=== PATIENT | female | born 1990 | race Caucasian/White ===

== ENCOUNTER 2017-06-20 09:32 | Outpatient (CLI) | payer OTHER ==
--- NOTE | 2017-06-20 10:20 | RADRPT ---
PROCEDURE: US biophysical profile. CLINICAL INDICATION: Decreased motion. TECHNIQUE: Multiple sonographic images of the uterus were obtained. The images were revi ewed on a PACS workstation. COMPARISON: No prior studies are available for comparison. FINDINGS: There is a single live intrauterine gestation. heart rate is 152 beats per minute. The position is cephalic. The placenta is anterior with no abruption or previa. The BRANDON is 13.3 cm. (Normal = 5-20 cm.) Breathing Movement: 2 Gross Body Movement: 2 Tone: 2 Qualitative Amniotic Fluid Volume: 2 TOTAL: 8 IMPRESSION: 1. The biophysical score is 8/8. RPTAT: QQ .Mumtaz Ordoñez MD, MD Date Time Electronically viewed and signed by .Mumtaz Ordoñez MD, on 06/20/2017 10:20 .R/
--- NOTE | 2017-06-20 11:30 | TRIAGE ---
OB Triage Datetime Report Generated by CPN: 06/20/2017 11:30 Datetime: 06/20/2017 11:01 Stage of : OB Triage Maternal Assessment Level of Consciousness: Fully Conscious DTR's/Clonus: DTRs 1+ Headache: Denies Breath Sounds, Left: Clear and Equal Breath Sounds, Right: Clear and Equal Nausea/Vomiting: Denies RUQ Epigastric Pain: Denies Labor Evaluation Frequency: NONE Monitor Mode: External Resting Tone [place]: Relaxed Heart Rate FHR Baseline Rate: 150 Monitor Mode: External US Variability: Moderate 6-25 bpm Accelerations: 15X15 Decelerations: None Category: Category I Pain Assessment Pain Scale: 3 Pain Presence: Intermittent Pain Type: Cramping Pain Goal: 3 Vaginal Exam Membrane Status: Intact Datetime: 06/20/2017 10:29 Maternal Assessment Level of Consciousness: Fully Conscious DTR's/Clonus: DTRs 1+ Headache: Denies Blurred Vision: No Respiratory Effort: Unlabored Breath Sounds, Left: Clear and Equal Breath Sounds, Right: Clear and Equal Nausea/Vomiting: Denies RUQ Epigastric Pain: Denies Facial Edema: None Labor Evaluation Frequency: NONE Monitor Mode: External Resting Tone [place]: Relaxed Heart Rate FHR Baseline Rate: 150 Monitor Mode: External US Variability: Moderate 6-25 bpm Accelerations: 15X15 Decelerations: None Category: Category I Pain Assessment Pain Scale: 3 Pain Presence: Intermittent Pain Type: Cramping Pain Goal: 3 Vaginal Exam Membrane Status: Intact Datetime: 06/20/2017 10:00 Stage of : OB Triage Datetime: 06/20/2017 09:50 Stage of : OB Triage Maternal Assessment Level of Consciousness: Fully Conscious DTR's/Clonus: DTRs 1+ Headache: Denies Blurred Vision: No Respiratory Effort: Unlabored Breath Sounds, Left: Clear and Equal Breath Sounds, Right: Clear and Equal Nausea/Vomiting: Denies RUQ Epigastric Pain: Denies Facial Edema: None Labor Evaluation Frequency: 8 Monitor Mode: External Duration (sec)2399: 40-50 Quality: Mild Pattern: Normal: <= 5 Contractions in 10 Minutes Resting Tone [place]: Relaxed Heart Rate FHR Baseline Rate: 150 Monitor Mode: External US Variability: Moderate 6-25 bpm Accelerations: 15X15 Decelerations: None Category: Category I Pain Assessment Pain Scale: 6 Pain Presence: Intermittent Pain Type: Contraction Pain Location: Abdomen; Back Pain Goal: 3 Pain Relief Measures: Comfort Measures Vaginal Exam Membrane Status: Intact Datetime: 06/20/2017 09:23 Time of Arrival: 06/20/2017 09:23 EGA: 38.5 Arrived By: Ambulatory Arrived From: Home Chief Complaint: PT CAME IN C/O UC'S SINCE 0200 IRREGULAR Movement: Present Contractions: Irregular Time Contractions Began: 06/20/2017 02:00 Contractions: 10 Rupture of Membranes: Denies Vaginal Discharge: Denies Abdominal Trauma: Not Applicable Additional Patient Complaints: NONE Time Provider Notified: 06/20/2017 10:00 Provider Notified: DR ROMAN Initial Plan: NST, BPP, AND VE
--- NOTE | 2017-06-20 11:47 | PN ---
Triage Information Date/Time Reason for visit: Uterine contractions Weeks of Gestation 38 weeks 5 days /Para Hypertention: none Objective Heart Rate: 130's Contractions: >10 Minutes Apart Exam Pelvic examination by nurse, cervix 2 cm dilated 80% effaced vertex at -2 station, heart rate category 1, biophysical profile 03/05, BRANDON 13.3,, labor instructions given recommended return to the hospital when contractions are stronger and closer together, otherwise follow with the clinic. Disposition: Discharge Assessment/Plan 38 weeks 5 days rule out labor, not in active labor commended return to the hospital when contractions are stronger and closer together otherwise follow with the clinic BRADLY ROMAN MD Jun 20, 2017 11:47
== END 2017-06-20 11:15 | disposition home or self-care (01) ==
LOC: L-D 09:32 → OBT 09:32
PROVIDERS: ATTEND Obstetrics & Gynecology
DX: O62.9 Abnormality of forces of labor, unspecified (principal); Z3A.38 38 weeks gestation of pregnancy
CPT/HCPCS: 76818; G0463

== ENCOUNTER 2017-06-22 22:43 | Inpatient (IN) | payer OTHER ==
[~2017-06-22] VITALS: Ht 154.9 cm; Wt 89.6 kg
[2017-06-22 23:35] VITALS: BP 127/80; PULSE 93; RESP 18
[2017-06-22] MEDS ORDERED: PREN-17 PO (23:39)
[2017-06-23 00:36] LABS: UR BACTERIA FEW /HPF (NONE SEEN); UR RBC 0 /HPF (0-5); UR SQUAMOUS EPITHELIAL CELL FEW /HPF (FEW)
[2017-06-23 01:02] LABS: ADD UMIC YES; UR ASCORBIC ACID NEGATIVE (NEGATIVE); UR BILIRUBIN (Dip) NEGATIVE (NEGATIVE); UR BLOOD (Dip) 2+ mg/dL (NEGATIVE); UR CLARITY SLIGHTLY CLOUDY (CLEAR); UR COLOR YELLOW (YELLOW); UR GLUCOSE (Dip) NEGATIVE (NEGATIVE); UR KETONES (Dip) NEGATIVE (NEGATIVE); UR LEUKOCYTE ESTERASE (Dip) 3+ Leu/ul (NEGATIVE); UR NITRITE (Dip) NEGATIVE (NEGATIVE); UR TOTAL PROTEIN (Dip) NEGATIVE (NEGATIVE); UR UROBILINOGEN (Dip) NEGATIVE (NEGATIVE)
--- NOTE | 2017-06-23 01:10 | RADRPT ---
PROCEDURE: Biophysical profile. CLINICAL INDICATION: Pelvic pain. TECHNIQUE: Multiple sonographic images of the pelvis were obtained with transabdominal technique. COMPARISON: 06/22/2017 FINDINGS: There is a single living intrauterine gestation with the fetus in a vertex position. The placenta i s anterior in location, grade II. heart tones of 146 beats per minute are identified. There i s normal amniotic fluid volume with an BRANDON of 12.9 cm. breathing movements = 2 Gross body movements = 2 tone = 2 Qualitative AFV = 2 IMPRESSION: Biophysical profile 8 out of 8. .Sharath Woodall MD, Date Time Electronically viewed and signed by .Sharath Woodall MD, on 06/23/2017 01:09 .T/
[2017-06-23] MEDS ORDERED: BUTORPHANOL 2 MG INJ IV PRN (01:30)
[2017-06-23] MEDS ORDERED: METHYLERGONOVINE 0.2 MG INJ IM PRN (01:30)
[2017-06-23] MEDS ORDERED: MISOPROSTOL 200 MCG TAB PR PRN (01:30)
[2017-06-23] MEDS ORDERED: IBUPROFEN 600 MG TAB PO PRN (01:30)
[2017-06-23] MEDS ORDERED: OXYTOCIN 30 UNITS/LR 500 ML IV PRN (01:30)
[2017-06-23] MEDS ORDERED: LIDOCAINE 1% (MPF) 30 ML INJ INJ PRN (01:30)
[2017-06-23] MEDS ORDERED: CARBOPROST 250 MCG INJ IM PRN (01:30)
[2017-06-23] MEDS ORDERED: OXYTOCIN 30 UNITS/LR 500 ML IV SCH ×2 (01:30)
[2017-06-23] MEDS ORDERED: AMPICILLIN 2 GM/NS (PMX) 100 ML IV ONE ×2 (01:30→04:00)
--- NOTE | 2017-06-23 01:45 | HP ---
Date/Time of Note Date/Time of Note DATE: 06/23/17 TIME: 01:40 OB - History Hx of Present Free Text/Dictation Patient is a 27-year-old 1 para 0 at 39 weeks and 1 day of gestation who presents in active labor GBS is negative Estimated weight 3393 g and 46 percentile Chief Complaint: Labor contractions Estimated Due Date: Jun 29, 2017 : 1 Para: 0 Care: Good Care Abnormal Ultrasound Findings: PROCEDURE: Biophysical profile. CLINICAL INDICATION: Pelvic pain. TECHNIQUE: Multiple sonographic images of the pelvis were obtained with transabdominal technique. COMPARISON: 06/22/2017 FINDINGS: There is a single living intrauterine gestation with the fetus in a vertex position. The placenta is anterior in location, grade II. heart tones of 146 beats per minute are identified. There is normal amniotic fluid volume with an BRANDON of 12.9 cm. breathing movements = 2 Gross body movements = 2 tone = 2 Qualitative AFV = 2 IMPRESSION: Biophysical profile 8 out of 8. .Sharath Woodall MD, MD Date Time Electronically viewed and signed by .Sharath Woodall MD, on 06/23/2017 01:09 .T/ CC: MARIELLA JESSICA MD Obstetrical Complications: None Medical Complications: None Past Family/Social History * Past Medical, Surgical, Family and Obstetric Histories reviewed from chart. OB Admission Exam Vital Signs Vital Signs Vital Signs Date Time Temp Pulse Resp B/P Pulse Ox O2 Delivery O2 Flow Rate FiO2 06/22/17 23:35 98.8 93 18 127/80 Room Air Physical Exam HEENT: WNL Heart: Rhythm Normal Lungs: Clear, Equal Abdomen: WNL Extremities: Normal Reflexes: Normal Cervical Dilatation: 4cm Effacement: 75% Station: -2 Membranes: Intact Accelerations: Accelerations Present Decelerations: No Decelerations Varibility: Moderate Intensity: Moderate OB Assessment/Plan Reason for admission: active labor Plan: Expectant Management Induction Method: per Pitocin Protocol Other plan: Admit to labor and delivery Pain meds as needed Oxytocin augmentation Anticipate normal spontaneous delivery Copies To: CC: BRADLY ROMAN MD, BAHAREH MD Jun 23, 2017 01:45
--- NOTE | 2017-06-23 01:56 | TRIAGE ---
OB Triage Datetime Report Generated by CPN: 06/23/2017 01:55 Datetime: 06/23/2017 01:34 Stage of : OB Triage Datetime: 06/23/2017 01:09 Labor Evaluation Frequency: 3-5 Monitor Mode: External Duration (sec)2399: 60 Quality: Moderate Pattern: Normal: <= 5 Contractions in 10 Minutes Resting Tone [place]: Relaxed Heart Rate FHR Baseline Rate: 140 Monitor Mode: External US FHR Baseline Changes: No Baseline Change Variability: Moderate 6-25 bpm Accelerations: 15X15 Decelerations: None Category: Category I Pain Assessment Pain Scale: 7 Pain Presence: Intermittent Pain Type: Contraction Pain Location: Abdomen Vaginal Exam Dilatation (cms): 4.0 Effacement (%): 80 Station: -2 Exam By: Marc Carlin Membrane Status: Intact Vaginal Bleeding: Scant Cervix, Consistency: Soft Cervix, Position: Midposition Presentation 'A': Cephalic Datetime: 06/23/2017 00:45 Stage of : OB Triage Pattern: Normal: <= 5 Contractions in 10 Minutes Resting Tone [place]: Relaxed Heart Rate FHR Baseline Rate: 145 Monitor Mode: External US Datetime: 06/22/2017 23:49 Time of Arrival: 06/22/2017 22:40 EGA: 39.0 Arrived By: Wheelchair Arrived From: Home Chief Complaint: c/o ucs Movement: Present Contractions: Irregular Time Contractions Began: 06/22/2017 18:00 Contractions: 15-20 Rupture of Membranes: Denies Vaginal Bleeding: None Vaginal Discharge: Present Recent Sexual Intercouse: Denies Abdominal Trauma: Not Applicable Patient Complaints: Contractions Time Provider Notified: 06/22/2017 23:46 Provider Notified: Dr Fazilat Initial Plan: EFM,SVE,BPP,EFW Datetime: 06/22/2017 23:46 Stage of : OB Triage Datetime: 06/22/2017 23:25 Stage of : OB Triage Labor Evaluation Frequency: 3-6 Monitor Mode: External Quality: Mild Pattern: Normal: <= 5 Contractions in 10 Minutes Resting Tone [place]: Relaxed Heart Rate FHR Baseline Rate: 155 Monitor Mode: External US FHR Baseline Changes: No Baseline Change Variability: Moderate 6-25 bpm Accelerations: 15X15 Decelerations: None Category: Category I Datetime: 06/22/2017 22:52 Stage of : OB Triage Maternal Assessment Level of Consciousness: Fully Conscious Headache: Denies Blurred Vision: No Respiratory Effort: Unlabored Nausea/Vomiting: Denies RUQ Epigastric Pain: Denies Facial Edema: None Labor Evaluation Frequency: placed Monitor Mode: External Resting Tone [place]: Relaxed Monitor Mode: External US Comments: 170 Pain Assessment Pain Scale: 5 Pain Presence: Intermittent Pain Type: Contraction Pain Location: Abdomen Datetime: 06/20/2017 09:23 EGA: 38.5
[2017-06-23] MEDS ORDERED: LACTATED RINGER'S 1,000 ML IV PRN (02:00)
[2017-06-23] MEDS: LACTATED RINGER'S 1,000 ML IV SCH ×2 (02:36→07:48)
[2017-06-23 03:02] LABS: BASOPHILS % 0.3 % (0.0-2.0); EOSINOPHILS # 0.2 10^3/ul (0.0-0.5); EOSINOPHILS % 1.2 % (0.0-7.0); HEMATOCRIT 36.9 % (37.0-47.0); HEMOGLOBIN 12.3 g/dl (12.0-16.0); LYMPHOCYTES # 2.1 10^3/ul (0.8-2.9); MEAN CORPUSCULAR HEMOGLOBIN 27.6 pg (29.0-33.0); MEAN CORPUSCULAR HGB CONC 33.3 g/dl (32.0-37.0); MEAN CORPUSCULAR VOLUME 82.7 fl (82.0-101.0); MEAN PLATELET VOLUME 10.1 fl (7.4-10.4); MONOCYTE # 0.9 10^3/ul (0.3-0.9); MONOCYTES % 5.7 % (0.0-11.0); NEUTROPHIL # 11.7 10^3/ul (1.6-7.5); NEUTROPHILS % 78.3 % (39.0-77.0); PLATELET COUNT 295 10^3/UL (140-415); RED BLOOD COUNT 4.46 10^6/ul (4.20-5.40)
[2017-06-23 03:16] LABS: INR 0.91; PARTIAL THROMBOPLASTIN TIME 24.3 Sec (25.0-35.0); PROTIME 12.2 Sec (12.2-14.2)
[2017-06-23 03:23] LABS: ALBUMIN 3.8 g/dl (3.3-4.9); ALBUMIN/GLOBULIN RATIO 1.02; CALCIUM 9.3 mg/dl (8.4-10.2); CREATININE 0.58 mg/dl (0.44-1.00); POTASSIUM 4.1 mmol/L (3.5-5.1); TOTAL PROTEIN 7.5 g/dl (6.1-8.1); URIC ACID 5.4 mg/dl (3.1-7.9)
[2017-06-23] MEDS ORDERED: AMPICILLIN 1 GM/NS (PMX) 50 ML IV SCH ×2 (05:30→08:00)
--- NOTE | 2017-06-23 07:08 | RADRPT ---
PROCEDURE: US OB. CLINICAL INDICATION: Labor. Contractions. Clinical estimated gestational age is 39 weeks 0 days wit h estimated date of delivery 06/29/2017. TECHNIQUE: Multiple sonographic images of the pelvis were obtained. The images were reviewed on a PACS workstation. COMPARISON: 06/20/2017 and 06/23/2017 biophysical profile ultrasound FINDINGS: There is a single live intrauterine gestation. Cardiac activity is present with 140 beats per minut e. There is a cephalic position. Measurements were made in order to determine age. The results are as follows: BPD =9.07 cm, 36 weeks 5 days HC =33.33 cm, 38 weeks 0 days AC =34.4 cm, 38 weeks 2 days FL =7.49 cm, 38 weeks 2 days. Estimated gestational age of approximately 37 weeks 6 days. The estimated date of delivery is 07/07/2017. The EFW = 3393 g, 7 pounds 8 ounces, 46.2% . The placenta is anterior and grade II. There is no evidence for an abruption. There is a normal amount of amniotic fluid with an BRANDON = 12.88 cm. IMPRESSION: Single live intrauterine gestation of approximately 37 weeks 6 days based on ultrasound measurements . The estimated date of delivery is 07/07/2017 . RPTAT: HJES .Price Calderon MD, Date Time Electronically viewed and signed by .Price Calderon MD, MD on 06/23/2017 01:14 .S/
--- NOTE | 2017-06-23 09:42 | LDN ---
Date/Time of Note Date/Time of Note DATE: 06/23/17 TIME: 09:38 Delivery Summary Normal spontaneous vaginal delivery of a baby boy from OA position shoulders delivered without difficulty of the baby's body followed cord clamped after stopped pulsation placenta spontaneous expulsion inspected complete, patient sustained first-degree perineal laceration repaired with 3-0 chromic catgut estimated blood loss 200 cc Weeks of Gestation 39 weeks 1 day Placenta Delivered: Spontaneously Episiotomy: No Perineal laceration: 1 Laceration repair: First-degree perineal vaginal laceration repaired with 3-0 chromic catgut Anesthesia type: Local Sponge & Needle done & correct: Yes All needle counts correct: Yes Any foreign bodies felt in the: No Problems: Infant Delivery Information Sex Sex: male Apgars 1 Minute: 8 5 Minute: 9 Suctioning Nose & mouth suctioned at jorge alberto: Yes Delee suction performed: No Umbilical Cord Umbilical cord with: 3 Vessels Cord presentations: nuchal cord Nuchal cord present X: 1 Cord Blood was obtained: Yes Mother & Baby Disposition Disposition Mom & Baby to Maternity; Good: Yes BRADLY ROMAN MD Jun 23, 2017 09:42
[2017-06-23] MEDS: OXYTOCIN 30 UNITS/LR 500 ML IV SCH ×2 (10:50→14:50)
[2017-06-23] MEDS ORDERED: OXYCODONE/ASPIRIN (4.88/325) TAB PO PRN ×2 (11:00)
[2017-06-23] MEDS ORDERED: LANOLIN 7 GM TUBE TOP PRN (11:00)
[2017-06-23] MEDS ORDERED: HYDROCODONE/APAP (5/325) TAB PO PRN ×2 (11:00)
[2017-06-23] MEDS ORDERED: ACETAMINOPHEN 325 MG TAB PO PRN (11:00)
[2017-06-23] MEDS ORDERED: WITCH HAZEL/GLYCERIN PAD PR PRN (11:00)
[2017-06-23] MEDS ORDERED: BENZOCAINE 20% 56 ML SPRAY TOP PRN (11:00)
[2017-06-23] MEDS ORDERED: ONDANSETRON 4 MG INJ IV PRN (11:00)
[2017-06-23] MEDS ORDERED: DIBUCAINE 1% 30 GM OINT PR PRN (11:00)
[2017-06-23 11:09] VITALS: BP 136/73; PULSE 93; RESP 14
[2017-06-23] MEDS: IBUPROFEN 600 MG TAB PO SCH ×2 (11:42→18:14)
[2017-06-23 12:10] VITALS: BP 128/66; PULSE 94; RESP 16
[2017-06-23 16:00] VITALS: BP 110/65; PULSE 102; RESP 16
[2017-06-23 20:00] VITALS: BP 120/61; PULSE 112; RESP 18
[2017-06-23] MEDS: SENNA/DOCUSATE NA (8.6MG/50MG) TAB PO SCH (21:21)
[2017-06-24 04:19] VITALS: BP 109/71; PULSE 101; RESP 18
[2017-06-24] MEDS: IBUPROFEN 600 MG TAB PO SCH ×5 (06:00→23:51)
[2017-06-24 07:50] VITALS: BP 125/73; PULSE 95; RESP 19
[2017-06-24] MEDS: SENNA/DOCUSATE NA (8.6MG/50MG) TAB PO SCH ×2 (09:04→21:09)
[2017-06-24 11:14] LABS: BASOPHIL # 0.1 10^3/ul (0.0-0.1); BASOPHILS % 0.5 % (0.0-2.0); EOSINOPHILS # 0.2 10^3/ul (0.0-0.5); HEMATOCRIT 28.4 % (37.0-47.0); HEMOGLOBIN 9.6 g/dl (12.0-16.0); LYMPHOCYTES # 2.9 10^3/ul (0.8-2.9); LYMPHOCYTES % 16.9 % (15.0-51.0); MEAN CORPUSCULAR HEMOGLOBIN 28.2 pg (29.0-33.0); MEAN CORPUSCULAR HGB CONC 33.8 g/dl (32.0-37.0); MEAN CORPUSCULAR VOLUME 83.5 fl (82.0-101.0); MEAN PLATELET VOLUME 10.2 fl (7.4-10.4); MONOCYTE # 0.8 10^3/ul (0.3-0.9); MONOCYTES % 4.7 % (0.0-11.0); NEUTROPHIL # 13.2 10^3/ul (1.6-7.5); NEUTROPHILS % 76.4 % (39.0-77.0); PLATELET COUNT 251 10^3/UL (140-415); RED CELL DISTRIBUTION WIDTH 14.3 % (11.5-14.5); WHITE BLOOD COUNT 17.2 10^3/ul (4.8-10.8)
--- NOTE | 2017-06-24 15:55 | QN ---
Documentation Comment Post normal vaginal delivery day 1 Afebrile, vital signs are stable, Abdomen soft Uterus firm Lochia normal Extremity normal Ambulation encouraged Laboratory Tests Test 06/24/17 10:27 White Blood Count 17.210^3/ul Red Blood Count 3.4010^6/ul Hemoglobin 9.6g/dl Hematocrit 28.4% Mean Corpuscular Volume 83.5fl Mean Corpuscular Hemoglobin 28.2pg Mean Corpuscular Hemoglobin Concent 33.8g/dl Red Cell Distribution Width 14.3% Platelet Count 54767^3/UL Mean Platelet Volume 10.2fl Neutrophils % 76.4% Lymphocytes % 16.9% Monocytes % 4.7% Eosinophils % 1.0% Basophils % 0.5% Nucleated Red Blood Cells % 0.0/100WBC Neutrophils # 13.210^3/ul Lymphocytes # 2.910^3/ul Monocytes # 0.810^3/ul Eosinophils # 0.210^3/ul Basophils # 0.110^3/ul Nucleated Red Blood Cells # 0.010^3/ul Current Medications Medications (Trade) Dose Ordered Sig/Florencio Route PRN Reason Start Time Stop Time Status Last Admin Dose Admin Lactated Ringer's 1,000 ml @ 125 mls/hr Q8H IV 06/23/17 01:14 06/23/17 10:52 DC 06/23/17 07:48 Ampicillin 100 ml @ 100 mls/hr ONCE ONCE IV 06/23/17 01:30 06/23/17 01:48 DC Ampicillin (Ampicillin 1 Gm/ NS (Pmx)) 50 ml @ 100 mls/hr Q4H IV 06/23/17 05:30 06/23/17 05:30 DC Butorphanol Tartrate (Stadol) 2 mg Q2H PRN IV PAIN 06/23/17 01:30 06/23/17 10:52 DC Lidocaine 30 ml 30 ml ONCE PRN INJ EPISIOTOMY/TEARING 06/23/17 01:30 06/23/17 10:52 DC 06/23/17 09:13 Oxytocin/Lactated Ringer's 500 ml @ 125 mls/hr ONCE -MAY REPEAT X1 IV 06/23/17 01:30 06/23/17 10:52 DC 06/23/17 10:09 Oxytocin/Lactated Ringer's 500 ml @ 125 mls/hr ONCE IV 06/23/17 01:30 06/23/17 10:53 DC 06/23/17 10:13 Ibuprofen 600 mg 600 mg ONCE PRN PO Mild Pain (Pain Score 1-3) 06/23/17 01:30 06/23/17 10:53 DC 06/23/17 10:17 Lactated Ringer's 1,000 ml @ 2,000 mls/hr Q30M PRN IV PRE-EPIDURAL BOLUS 06/23/17 02:00 06/23/17 10:53 DC Oxytocin/Lactated Ringer's 500 ml @ 0 mls/hr ONCE PRN IV For Hemorrhage Management 06/23/17 01:30 06/23/17 10:53 DC Methylergonovine Maleate (Methergine) 0.2 mg ONCE PRN IM VAGINAL BLEEDING 06/23/17 01:30 06/23/17 10:53 DC Carboprost Tromethamine (Hemabate) 250 mcg ONCE PRN IM VAGINAL BLEEDING 06/23/17 01:30 06/23/17 10:53 DC Misoprostol 1000 mcg 1,000 mcg ONCE PRN MI VAGINAL BLEEDING 06/23/17 01:30 06/23/17 10:53 DC Ampicillin 100 ml @ 100 mls/hr ONCE ONCE IV 06/23/17 04:00 06/23/17 04:59 DC 06/23/17 04:15 Ampicillin 50 ml @ 100 mls/hr Q4H IV 06/23/17 08:00 06/23/17 10:53 DC 06/23/17 07:48 Oxytocin/Lactated Ringer's 500 ml @ 125 mls/hr Q4H IV 06/23/17 10:50 06/23/17 18:47 DC Ibuprofen (Motrin) 600 mg Q6 PO 06/23/17 12:00 06/24/17 12:17 Acetaminophen (Tylenol Tab) 650 mg Q4H PRN PO PAIN LEVEL 1-5 06/23/17 11:00 Acetaminophen/ Hydrocodone Bitart ([place] (5/325)) 1 tab Q4H PRN PO PAIN LEVEL 1-5 06/23/17 11:00 Acetaminophen/ Hydrocodone Bitart ([place] (5/325)) 2 tab Q4H PRN PO PAIN LEVEL 6-10 06/23/17 11:00 Oxycodone/Aspirin (Percodan) 1 tab Q3H PRN PO PAIN LEVEL 1-5 06/23/17 11:00 Oxycodone/Aspirin (Percodan) 2 tab Q3H PRN PO PAIN LEVEL 6-10 06/23/17 11:00 Ondansetron HCl (Zofran Inj) 4 mg Q6H PRN IV NAUSEA AND/OR VOMITING 06/23/17 11:00 Senna/Docusate Sodium (Senokot-S) 1 tab BID PO 06/23/17 21:00 06/24/17 09:04 Witch Umm/ Glycerin (Tucks Pads) 1 pad BEDSIDE MEDICATION PRN MI HEMORRHOID/EPISIOTMY PAIN 06/23/17 11:00 06/23/17 13:00 Benzocaine (Dermoplast [place]) 1 spray BEDSIDE MEDICATION PRN TOP HEMORRHOID/EPISIOTMY PAIN 06/23/17 11:00 06/23/17 13:00 Dibucaine (Nupercainal) 1 applic BEDSIDE MEDICATION PRN MI HEMORRHOID/EPISIOTMY PAIN 06/23/17 11:00 06/23/17 13:00 Lanolin (Tru-G-Qdptpt) 1 applic BEDSIDE MEDICATION PRN TOP BEDSIDE FOR ASHANTI TO NIPPLES 06/23/17 11:00 06/23/17 13:01 Measles/Mumps/ Rubella Vaccine Live (Mmr Ii Vaccine) 0.5 ml ONCE ONCE SC* 06/25/17 09:00 06/25/17 09:01 BRADLY ROMAN MD Jun 24, 2017 15:55
[2017-06-24 18:02] VITALS: BP 116/62; PULSE 71
[2017-06-24 19:40] VITALS: BP 114/59; PULSE 80; RESP 21
[2017-06-25 03:30] VITALS: BP 117/71; PULSE 86; RESP 18
[2017-06-25] MEDS: IBUPROFEN 600 MG TAB PO SCH ×2 (05:32→11:45)
[2017-06-25 07:30] VITALS: BP 115/67; PULSE 81; RESP 18
[2017-06-25] MEDS ORDERED: MEASLES,MUMPS,RUBELLA VACCINE INJ SC* ONE (09:00)
[2017-06-25] MEDS: SENNA/DOCUSATE NA (8.6MG/50MG) TAB PO SCH (09:00)
--- NOTE | 2017-06-25 10:18 | PD.PPDC ---
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
--- NOTE | 2017-06-25 10:22 | DS ---
Date/Time of Note Date/Time of Note DATE: 06/25/17 TIME: 10:21 Discharge Summary Admission/Discharge Info Admit Date/Time Jun 23, 2017 at 01:52 Discharge Date/Time June 25, 2017 at 1015 Discharge Diagnosis Day 2 post normal vaginal delivery Patient Condition: Good Procedures Normal vaginal delivery Hx of Present Illness Term Hospital Course Satisfactory uneventful Home Meds Reported Medications Vit No.78/Iron/FA (Prenatabs FA Tablet) 1 Each Tablet, 1 EACH PO DAILY , TAB 06/22/17 Follow-up Plan instruction given recommended to make appointment to be seen at the clinic in 2 weeks Primary Care Provider Radha Calhoun Time spent on discharge: < 30 minutes Pending Labs Laboratory Tests Test 06/24/17 10:27 White Blood Count 17.210^3/ul (4.8-10.8) Red Blood Count 3.4010^6/ul (4.20-5.40) Hemoglobin 9.6g/dl (12.0-16.0) Hematocrit 28.4% (37.0-47.0) Mean Corpuscular Volume 83.5fl (82.0-101.0) Mean Corpuscular Hemoglobin 28.2pg (29.0-33.0) Mean Corpuscular Hemoglobin Concent 33.8g/dl (32.0-37.0) Red Cell Distribution Width 14.3% (11.5-14.5) Platelet Count 65384^3/UL (140-415) Mean Platelet Volume 10.2fl (7.4-10.4) Neutrophils % 76.4% (39.0-77.0) Lymphocytes % 16.9% (15.0-51.0) Monocytes % 4.7% (0.0-11.0) Eosinophils % 1.0% (0.0-7.0) Basophils % 0.5% (0.0-2.0) Nucleated Red Blood Cells % 0.0/100WBC (0.0-0.0) Neutrophils # 13.210^3/ul (1.6-7.5) Lymphocytes # 2.910^3/ul (0.8-2.9) Monocytes # 0.810^3/ul (0.3-0.9) Eosinophils # 0.210^3/ul (0.0-0.5) Basophils # 0.110^3/ul (0.0-0.1) Nucleated Red Blood Cells # 0.010^3/ul (0.0-0.0) BRADLY ROMAN MD Jun 25, 2017 10:22
== END 2017-06-25 16:44 | disposition home or self-care (01) | DRG 775 ==
LOC: OBT 22:43 → L-D 22:44 → OBT 06-23 01:50 → L-D 06-23 01:52 → PP1 06-23 10:41
PROVIDERS: ADMIT Obstetrics & Gynecology; ATTEND Obstetrics & Gynecology
PROC: 10E0XZZ Delivery of Products of Conception, External Approach (ICD-10-PCS; principal; 2017-06-23)
PROC: 0HQ9XZZ Repair Perineum Skin, External Approach (ICD-10-PCS; 2017-06-23)
PROC: 4A1HXCZ Monitoring of Products of Conception, Cardiac Rate, External Approach (ICD-10-PCS; 2017-06-23)
DX: O70.0 First degree perineal laceration during delivery (principal); Z37.0 Single live birth; Z3A.39 39 weeks gestation of pregnancy
CPT/HCPCS: 76815; 76818; 80053; 81001; 84560; 85025; 85610; 85730; 86592; 86900; 86901; G0463; J0290; J2590; J7120

== ENCOUNTER 2017-12-30 12:13 | Emergency (ER) | END 2017-12-30 14:35 | disposition home or self-care (01) ==

== ENCOUNTER 2018-10-21 11:35 | Emergency (ER) | payer OTHER ==
[~2018-10-21] VITALS: Ht 162.6 cm; Wt 78.0 kg
[~2018-10-21 11:35] MED LIST: AMOX500C2 PO; IBUP-1542 PO; PREN-17 PO; PROM5SYR2 PO
[2018-10-21 11:41] VITALS: BP 138/72; PULSE 69; RESP 18; Ht 162.6 cm; Wt 78.0 kg
[2018-10-21] MEDS ORDERED: ACET500C5 PO (15:06)
--- NOTE | 2018-10-21 15:16 | ERD ---
ER Documentation Chief Complaint Chief Complaint RIGHT LOWER PLEVIC PAIN WHEN COUGHING, 16 WKS PREG HPI 28-year-old female presents with pelvic pain with coughing. Patient is 16 weeks with out vaginal bleeding or complication. Patient states she has had a dry cough with no fevers. Has not taken medication. Has mild nasal congestion. Denies any pleuritic chest pain or shortness of breath. Has some mild ear pain. Denies medical problems. NKDA. Surgical history denies. Social history denies ROS All systems reviewed and are negative except as per history of present illness. Medications Home Meds Active Scripts Acetaminophen* (Tylophen*) 500 Mg Capsule, 2 CAP PO Q8H PRN for PAIN AND OR ELEVATED TEMP, #20 CAP Prov:MAYELA LEUNG PA-C 10/21/18 Ibuprofen* (Motrin*) 600 Mg Tab, 600 MG PO Q8, #15 TAB Prov:MINOR GILLETTE MD 12/30/17 Promethazine HCl/Codeine (Prometh-Codein 6.25-10 mg/5 ml) 5 Ml Syrup, 5 ML PO QHS, #120 ML Prov:MINOR GILLETTE MD 12/30/17 Amoxicillin* (Amoxicillin*) 500 Mg Cap, 500 MG PO TID for 7 Days, CAP Prov:MINOR GILLETTE MD 12/30/17 Reported Medications Vit No.78/Iron/FA (Prenatabs FA Tablet) 1 Each Tablet, 1 EACH PO DAILY, TAB 06/22/17 Allergies Allergies: Coded Allergies: No Known Allergy (Unverified , 06/22/17) PMhx/Soc Hx Alcohol Use: No Hx Substance Use: No Hx Tobacco Use: No FmHx Family History: No diabetes, No coronary disease, No other Physical Exam Vitals Vital Signs Date Temp Pulse Resp B/P (MAP) Pulse Ox O2 O2 Flow FiO2 Time Delivery Rate 10/21/18 98.5 69 18 138/72 97 11:41 (94) Physical Exam GENERAL: The patient is well-appearing, well-nourished, in no acute distress HEENT: Atraumatic. Conjunctivae are pink. Pupils equal, round, and reactive to light. There is no scleral icterus. Tympanic membranes clear bilaterally. Oropharynx clear. No nystagmus or photophobia. NECK: C-spine is soft and supple. There is no meningismus. There is no cervical lymphadenopathy. CHEST: Clear to auscultation bilaterally. There are no rales, wheezes or rhonchi. HEART: Regular rate and rhythm. No murmurs, clicks, rubs or gallops. No S3 or S4. ABDOMEN:Soft, nontender and nondistended. Good bowel sounds. No rebound or guarding. No gross peritonitis. No gross organomegaly or masses. BACK: No midline or flank tenderness. Results 24 hrs Laboratory Tests Test 10/21/18 13:15 10/21/18 13:16 Bedside Urine pH (LAB) 7.5 Bedside Urine Protein (LAB) Trace Bedside Urine Glucose (UA) Negative Bedside Urine Ketones (LAB) Negative Bedside Urine Blood Trace-intact Bedside Urine Nitrite (LAB) Negative Bedside Urine Leukocyte Esterase (L Negative POC Beta HCG, Qualitative POSITIVE Procedures/MDM DIAGNOSTIC IMAGING REPORT Patient: MALAIKA AMARO : 1990 Age: 28 Sex: F MR #: [id number] DOS: 10/21/18 1326 Ordering MD: PITA LEUNG PA-C Location: [facility] Room/Bed: PROCEDURE: US OB AND ULTRASOUND CERVIX. CLINICAL INDICATION: Size and dates , cough, pelvic pain TECHNIQUE: Multiple sonographic images of the pelvis and gravid uterus were obtained. The images were reviewed on a PACS workstation. COMPARISON: No prior studies are available for comparison. FINDINGS: Cervix: Length: 3.8 cm. Closed and competent. Gestation: Single live intrauterine gestation. Cardiac activity: 152 beats per minute. Presentation: Variable Placenta: Location: Anterior. Appearance: No previa or abruption. Measurements: BPD = 3.3 cm, 16 weeks and 1 day HC = 12 cm, 16 weeks and 0 days AC = 9.6 cm, 15 weeks and 5 days FL = 1.9 cm, 15 weeks and 3 days Gestational Age: AUA estimated gestational age: 15 weeks 6 days LMP estimated gestational age: 17 weeks 1 day AUA estimated date of delivery: 04/08/19 The EFW = 130 g, <3%ile based on LMP age. The ovaries are not visualized. RPTAT: AA IMPRESSION: Single live intrauterine gestation of approximately 15 weeks and 6 days based on ultrasound measurements. MDM: 28-year-old female presenting with pelvic pressure. Urine is negative. I have low suspicion for urinary tract infection or pyelonephritis. I have low suspicion for complication secondary to . I have low suspicion for bacterial infection. Patient is discharged with stricter precautions and told to follow-up with primary care within 1-2 days for close evaluation. All questions answered at discharge Departure Diagnosis: Primary Impression: Pelvic pain affecting Additional Impression: Cough Condition: Stable Patient Instructions: Cough, Chronic, Uncertain Cause, (Adult), Pelvic Pain In : Unclear (2-3 Trimester) Additional Instructions: FOLLOW UP WITH YOUR PRIMARY CARE PHYSICIAN TOMORROW.Return to this facility if you are not improving as expected. MAYELA LEUNG PA-C Oct 21, 2018 15:16
== END 2018-10-21 15:12 | disposition home or self-care (01) ==
LOC: FTE 11:35
DX: O26.892 Other specified pregnancy related conditions, second trimester (principal); R05 Cough; R10.2 Pelvic and perineal pain; Z3A.16 16 weeks gestation of pregnancy
CPT/HCPCS: 76805; 81003; 81025; Z7502

== ENCOUNTER 2018-11-01 10:47 | Emergency (ER) | payer OTHER ==
[~2018-11-01] VITALS: Wt 89.0 kg
[~2018-11-01 10:47] MED LIST changes: +ACET500C5 PO
[2018-11-01 10:49] VITALS: BP 131/66; PULSE 67; RESP 18
--- NOTE | 2018-11-01 11:32 | ERD ---
ER Documentation Chief Complaint Chief Complaint COUGH X 3 WEEKS HPI 28-year-old female, previously healthy, presents the emergency department, complaining of persistent right ear pain for 1 week, associated with a sore throat, dry cough and general malaise. The patient denies fevers, no chills, no shortness of breath. ROS All systems reviewed and are negative except as per history of present illness. Medications Home Meds Active Scripts Acetaminophen* (Tylophen*) 500 Mg Capsule, 2 CAP PO Q8H PRN for PAIN AND OR ELEVATED TEMP, #20 CAP Prov:MAYELA LEUNG PA-C 10/21/18 Ibuprofen* (Motrin*) 600 Mg Tab, 600 MG PO Q8, #15 TAB Prov:MINOR GILLETTE MD 12/30/17 Promethazine HCl/Codeine (Prometh-Codein 6.25-10 mg/5 ml) 5 Ml Syrup, 5 ML PO QHS, #120 ML Prov:MINOR GILLETTE MD 12/30/17 Amoxicillin* (Amoxicillin*) 500 Mg Cap, 500 MG PO TID for 7 Days, CAP Prov:MINOR GILLETTE MD 12/30/17 Reported Medications Vit No.78/Iron/FA (Prenatabs FA Tablet) 1 Each Tablet, 1 EACH PO DAILY, TAB 06/22/17 Allergies Allergies: Coded Allergies: No Known Allergy (Unverified , 06/22/17) PMhx/Soc Medical and Surgical Hx: pt denies Medical Hx, pt denies Surgical Hx Hx Alcohol Use: No Hx Substance Use: No Hx Tobacco Use: No Smoking Status: Never smoker FmHx Family History: No diabetes, No coronary disease Physical Exam Vitals Vital Signs Date Temp Pulse Resp B/P (MAP) Pulse Ox O2 O2 Flow FiO2 Time Delivery Rate 11/01/18 97.7 67 18 131/66 99 10:49 (87) Physical Exam Patient alert, oriented, vital signs stable. HEENT: Normocephalic, atraumatic. EYES: PERRLA, EOMI, Sclera and conjunctiva appear normal. EARS: Right ear with significant tympanic membrane erythema and edema of the canal. Contralateral ear normal. THROAT: Erythematous oropharynx. NECK: Supple, No lymphadenopathy. Full ROM without pain or tenderness. HEART: RRR, no rubs, murmurs, clicks or gallops. LUNGS: Clear to auscultation. ABDOMEN: Soft, non-tender without masses or hepatosplenomegaly. EXTREMITIES: No edema bilaterally. BACK: Full ROM, no deformity, normal back exam NEURO: Cranial nerves grossly intact, no motor or sensory deficit Procedures/MDM Vital signs stable, differential diagnosis include but not limited to: infection bacterial/viral/fungal. Tonsillitis, eustachian dysfunction, allergies, foreign body, cholesteatoma. Less likely mastoiditis, malignant otitis, meningitis. Physical examination and clinical presentation consistent most likely with right otitis externa During the ED course the patient remained stable, no new complaints. Clinical impression discussed with patient who agrees with management. The patient is stable to be treated outpatient and will be discharged home with a Rx for topical antibiotics and ibuprofen. Some side effects of prescribed medications (headache, rash, nausea, vomiting, diarrhea, interactions with other medications) were reviewed. The patient was instructed to follow up with the primary care provider in the next 48h. If symptoms persist, worsen or new symptoms develop, then patient should return to the ED immediately. Disclaimer: Inadvertent spelling and grammatical errors are likely due to EHR/dictation software use and do not reflect on the overall quality of patient care. Also, please note that the electronic time recorded on this note does not necessarily reflect the actual time of the patient encounter. Departure Diagnosis: Primary Impression: Right otitis externa Condition: Stable Additional Instructions: Muchas wagner por [facility] para lauren servicio. Esperamos que en lauren visita a la kenneth de emergencia lauren problema medico haya sido solucionado y que se sienta mucho mejor. Para estar seguros que lauren mejoria sigue en proceso, le pedimos el favor de hacer vicky lenny de seguimiento medico con lauren doctor primario en los proximos 2-4 alvarez. Lleve con usted estos documentos y las medicinas recetadas. Si grant sintomas empeoran, NO SE ESPERE, por favor regrese a kenneth de emergencia INMEDIATAMENTE. En lindy que usted no tenga un mdico de atencin primaria: Llame al mdico o clnica comunitaria de referencia que aparece abajo amber las horas de consultorio para hacer vicky lenny para que le vean. CLINICAS: [facility] [phone] [facility] [phone] [address] [facility] [phone] [address] [place] [id number] [phone] [place] [address] [phone] [facility]. [phone] MINOR SKINNER MD Nov 01, 2018 11:32
[2018-11-01] MEDS ORDERED: NPH10OT RIGHT EAR (11:50)
[2018-11-01] MEDS ORDERED: ACET325T33 PO (11:50)
== END 2018-11-01 12:01 | disposition home or self-care (01) ==
LOC: FTE 10:47
DX: H60.91 Unspecified otitis externa, right ear (principal)
CPT/HCPCS: 99282

== ENCOUNTER 2018-12-01 10:36 | Emergency (ER) | payer OTHER ==
[~2018-12-01] VITALS: Ht 165.1 cm; Wt 75.0 kg
[~2018-12-01 10:36] MED LIST changes: +ACET325T33 PO; +NPH10OT RIGHT EAR
[2018-12-01 10:45] VITALS: BP 115/57; PULSE 94; RESP 18; Ht 165.1 cm; Wt 75.0 kg
[2018-12-01] MEDS ORDERED: ACETAMINOPHEN 500 MG TAB PO STA (12:26)
[2018-12-01] MEDS ORDERED: ONDANSETRON (ODT) 4 MG TAB ODT STA (12:26)
[2018-12-01] MEDS ORDERED: MECLIZINE 12.5 MG TAB PO ONE (12:30)
--- NOTE | 2018-12-01 12:43 | ERD ---
ER Documentation Chief Complaint Chief Complaint headache dizziness x 1week HPI 28-year-old female who states she is about 22 weeks . She is here complaining of headache that is bilateral frontal and pulsating with dizziness that she describes as the room spinning. This is been going on for 1 week. She also has nausea and vomiting secondary to her headache. She has not taken any medication for her symptoms. No photosensitivity or changes to her vision. Denies any OB complaints including abdominal pain, pelvic pain, urinary symptoms, vaginal bleeding, or others. She has no fever. ROS All systems reviewed and are negative except as per history of present illness. Medications Home Meds Active Scripts Ondansetron (Ondansetron Odt) 4 Mg Tab.rapdis, 4 MG PO Q6H PRN for NAUSEA AND/OR VOMITING, #12 TAB Prov:NORAH CASTILLO PA-C 12/01/18 Acetaminophen* (Tylenol*) 325 Mg Tablet, 2 TAB PO Q6 PRN for PAIN AND OR ELEVATED TEMP, #20 TAB Prov:NORAH CASTILLO PA-C 12/01/18 Meclizine Hcl* (Meclizine Hcl*) 25 Mg Tablet, 25 MG PO Q8H PRN for DIZZINESS, #12 TAB Prov:NORAH CASTILLO PA-C 12/01/18 Acetaminophen* (Tylenol*) 325 Mg Tablet, 2 TAB PO Q6 PRN for PAIN AND OR ELEVATED TEMP, #20 TAB Prov:MINOR GILLETTE MD 11/01/18 Neomycin/Polymyxin/Hydrocort* (Cortisporin* Otic) 10 Ml Susp, 4 DROP RIGHT EAR QID for 7 Days, EA Prov:MINOR GILLETTE MD 11/01/18 Acetaminophen* (Tylophen*) 500 Mg Capsule, 2 CAP PO Q8H PRN for PAIN AND OR ELEVATED TEMP, #20 CAP Prov:MAYELA LEUNG PA-C 10/21/18 Ibuprofen* (Motrin*) 600 Mg Tab, 600 MG PO Q8, #15 TAB Prov:MINOR GILLETTE MD 12/30/17 Promethazine HCl/Codeine (Prometh-Codein 6.25-10 mg/5 ml) 5 Ml Syrup, 5 ML PO QHS, #120 ML Prov:MINOR GILLETTE MD 12/30/17 Amoxicillin* (Amoxicillin*) 500 Mg Cap, 500 MG PO TID for 7 Days, CAP Prov:MINOR GILLETTE MD 12/30/17 Reported Medications Vit No.78/Iron/FA (Prenatabs FA Tablet) 1 Each Tablet, 1 EACH PO DAILY, TAB 06/22/17 Allergies Allergies: Coded Allergies: No Known Allergy (Unverified , 06/22/17) PMhx/Soc Hx Alcohol Use: No Hx Substance Use: No Hx Tobacco Use: No FmHx Family History: No diabetes Physical Exam Vitals Vital Signs Date Temp Pulse Resp B/P (MAP) Pulse Ox O2 O2 Flow FiO2 Time Delivery Rate 12/01/18 36.7 12:57 12/01/18 98.1 94 18 115/57 98 10:45 (76) Physical Exam INITIAL VITAL SIGNS: Reviewed by me GENERAL: Awake, alert and oriented x 4, well appearing, nontoxic, speaking in full sentences. No acute distress HEAD: Atraumatic NECK: Supple. No masses. Full range of motion. No meningismus. No midline tenderness. EYES: EOMI. PERRL. EAR: No tenderness over the mastoids bilaterally. No exudates in the canals. TMs nonerythematous. RESPIRATORY: Clear to auscultation bilaterally. Symmetric chest wall rise. No wheezing or rales. No accessory muscle use. CV: Regular rate and rhythm. No murmurs, rubs, or gallops. ABDOMEN: Soft, non-distended. Nontender. Negative [place]. Negative McBurneys point tenderness. No CVA tenderness bilaterally. No guarding. No rebound. Neuro: M/S: Alert and oriented Face: EOMI, face and pharynx with normal sensation and function Motor: Normal strength throughout Sensation: Normal sensation throughout Speech: Normal Cerebel: Normal coordination Normal gait Normal finger to nose Results 24 hrs Laboratory Tests Test 12/01/18 12:39 Bedside Glucose 110 mg/dL Current Medications Medications Dose Sig/Florencio Start Time Status Last (Trade) Ordered Route PRN Stop Time Admin Dose Reason Admin 1,000 mg ONCE STAT 12/01/18 DC 12/01/18 Acetaminophen PO 12:26 12/01/18 12:57 (Tylenol 12:28 Tab) Meclizine 50 mg ONCE ONCE 12/01/18 DC 12/01/18 HCl PO 12:30 12/01/18 12:57 (Antivert) 12:31 Ondansetron 4 mg ONCE STAT 12/01/18 DC 12/01/18 HCl (Zofran ODT 12:26 12/01/18 12:58 Odt) 12:28 Procedures/MDM The differential diagnosis includes but is not limited to subdural hematoma, epidural hematoma, intracerebral hemorrhage, occult trauma, CVA, meningitis, encephalitis, hypertension, tension, migraine, cluster, cervical spine disease, and others. Patients is alert, oriented, well appearing, and in no distress with normal vital signs. There is no fever, tachycardia, or tachypnea. Is a female with headache. She has no OB complaints. No abdominal pain, pelvic pain, or vaginal bleeding. She does have nausea and vomiting however she states it is secondary to her headache and not from any GI complaint. Her neurological examination is normal and she is well-appearing. She was given Tylenol, Zofran, and meclizine here. Patient felt much better after these medications she was given prescription for these medications. Recommend she follow-up with her EGG GRADER within the next 24 to 48 hours. Patient counseled regarding my diagnostic impression and care plan. Prior to discharge all questions answered. Pt agrees with treatment plan and understands strict return precautions. Pt is instructed to follow up with primary care provider within 24-48 hours. Precautionary instructions provided including instructions to return to the ER if not improving or for any worsening or changing symptoms or concerns. Departure Diagnosis: Primary Impression: Headache Additional Impression: Dizziness Condition: Stable NORAH CASTILLO PA-C December 01, 2018 12:43
[2018-12-01] MEDS ORDERED: ACET325T33 PO (13:27)
[2018-12-01] MEDS ORDERED: MECL-77 PO (13:27)
[2018-12-01] MEDS ORDERED: ONDA4TAB14 PO (13:27)
[2018-12-02] MEDS ORDERED: ACET500C5 PO (16:40)
== END 2018-12-01 13:51 | disposition home or self-care (01) ==
LOC: FTE 10:36
DX: O26.892 Other specified pregnancy related conditions, second trimester (principal); R51 Headache; R42 Dizziness and giddiness; Z3A.22 22 weeks gestation of pregnancy
CPT/HCPCS: 82962; Z7502; Z7610; 99283

== ENCOUNTER 2018-12-02 12:18 | Outpatient (CLI) | payer OTHER ==
[~2018-12-02] VITALS: Ht 154.9 cm; Wt 81.9 kg
[~2018-12-02 12:18] MED LIST changes: +MECL-77 PO; +ONDA4TAB14 PO
[2018-12-02 12:25] VITALS: Ht 154.9 cm; Wt 81.9 kg
[2018-12-02] MEDS ORDERED: ACETAMINOPHEN 325 MG TAB PO ONE (13:00)
[2018-12-02] MEDS ORDERED: ACET500C5 PO (16:40)
--- NOTE | 2018-12-02 17:56 | TRIAGE ---
OB Triage Datetime Report Generated by CPN: 12/02/2018 17:56 Datetime: 12/02/2018 12:22 EGA: 21.6 Datetime: 12/02/2018 12:15 Assessment Type: Triage Maternal Assessment Level of Consciousness: Fully Conscious DTR's/Clonus: DTRs 2+; No Clonus Headache: Denies Blurred Vision: No Respiratory Effort: Unlabored; Regular Rhythm; Equal Expansion Breath Sounds, Left: Clear and Equal Breath Sounds, Right: Clear and Equal Nausea/Vomiting: Denies RUQ Epigastric Pain: Denies Lower Extremities Edema: None Degree: None Upper Extremities Edema: None Degree: None Facial Edema: None Fall Risk Assessment History of Falling: (0) No Secondary Diagnosis: (0) No Ambulatory Aid: (0) Bedrest/Nurse Assist IV Therapy: (0) No Gait: (0) Normal/Bedrest/Immobile Mental Status: (0) Oriented to Own Ability Fall Score: 0 Fall Risk Score Definition: No Risk: No action required Datetime: 12/02/2018 12:02 Assessment Type: Triage Time of Arrival: 12/02/2018 12:02 Arrived By: Ambulatory Arrived From: Office Chief Complaint: PT CAME IN FROM CLINIC C/O DIZZINESS AND HEADACHE FOR A WEEK. STATES THAT SHE TOOK TYLENOL 500 THIS AM. Movement: Present Contractions: Denies/Absent Rupture of Membranes: Denies Vaginal Bleeding: None Vaginal Discharge: Denies Recent Sexual Intercouse: Denies Abdominal Trauma: Not Applicable Patient Complaints: Dizziness Additional Patient Complaints: NONE Provider Notified: HADJAVIER Initial Plan: TOCO, B/P MONITORING
--- NOTE | 2018-12-03 21:33 | PN ---
Triage Information Date/Time Reason for visit: Dizziness and headache Weeks of Gestation 21-week and 6 days /Para 2 para 1-0-0-1 Diabetes: none Hypertention: none Objective Heart Rate: 140's Contractions: None Disposition: Discharge Assessment/Plan 28 years old 2 para 1-0-0-1 with single intrauterine at 21 weeks and 6 days with JALYN of 04/08/2019 complaining of headache and dizziness. She states good movement. She denies nausea, vomiting, shortness of breath, chest pain, visual changes, vaginal bleeding or LOF. -FHR: No sign of metabolic acidosis- Category I -Contractions: None CBC with hemoglobin 12.7, CMP within normal limits -IV fluid and Tylenol 500 mg p.o. given, headache and dizziness resolved. I did recommend he continue to have dizziness needs to be seen at the emergency department. -Symptoms and sign of labor, preeclampsia, kick count discussed with patient, she voiced understanding. All of her questions answered. -Patient was discharged home in stable condition with the appropriate discharge instructions provided. I would like patient to have close follow-up with her [facility] physician or outpatient clinic in 1-2 days or return to triage for worsening symptoms or any other urgent concerns. BRIDGET LOVE December 03, 2018 21:33
== END 2018-12-02 13:29 | disposition home or self-care (01) ==
LOC: OBT 12:18 → L-D 12:19 → OBT 13:29
PROVIDERS: ATTEND Obstetrics & Gynecology
DX: O26.892 Other specified pregnancy related conditions, second trimester (principal); R42 Dizziness and giddiness; R51 Headache; Z3A.21 21 weeks gestation of pregnancy
CPT/HCPCS: Z7500; Z7610; G0463

== ENCOUNTER 2018-12-02 13:33 | Emergency (ER) | payer OTHER ==
[~2018-12-02] VITALS: Wt 95.5 kg
[2018-12-02] MEDS ORDERED: SOD CHLORIDE 0.9% 1,000 ML IV STA (14:51)
[2018-12-02] MEDS ORDERED: ACET500C5 PO (16:40)
[2018-12-02 16:53] VITALS: BP 103/60; PULSE 79; RESP 18
--- NOTE | 2018-12-02 17:52 | ERD ---
ER Documentation Chief Complaint Chief Complaint 5mo preg cleared by OB. dizzy, nausea and vomiting x1wk. HPI 28-year-old female patient with no significant past medical history presents to the ED for having dizziness during her . Patient reports that she is about 5 months and was cleared upstairs by INSPECTOR AUTOMATIC TYPEWRITER, Dr. López and patient has normal heart tones. Patient is not complaining of any vaginal bleeding, abdominal pain, chest pain, shortness of breath, vomiting, diarrhea. Patient reports that she is however nauseous. States that the dizziness is not associated with dizziness. ROS All systems reviewed and are negative except as per history of present illness. Medications Home Meds Active Scripts Acetaminophen* (Tylophen*) 500 Mg Capsule, 1 CAP PO Q6H PRN for PAIN AND OR ELEVATED TEMP, #20 CAP Prov:JIMENA TANNER PA-C 12/02/18 Reported Medications Vit No.78/Iron/FA (Prenatabs FA Tablet) 1 Each Tablet, 1 EACH PO DAILY, TAB 06/22/17 Allergies Allergies: Coded Allergies: No Known Allergy (Unverified , 12/02/18) PMhx/Soc Medical and Surgical Hx: pt denies Medical Hx, pt denies Surgical Hx Hx Alcohol Use: No Hx Substance Use: No Hx Tobacco Use: No Smoking Status: Never smoker FmHx Family History: No diabetes, No coronary disease Physical Exam Vitals Vital Signs Date Temp Pulse Resp B/P (MAP) Pulse Ox O2 O2 Flow FiO2 Time Delivery Rate 12/02/18 98.3 79 18 103/60 100 Room Air 16:53 (74) 12/02/18 98.1 71 16 147/61 100 13:38 (89) Physical Exam Const: Iep-ifi-[id number], well-nourished. In no acute distress. Head: Atraumatic, normocephalic Eyes: Normal Conjunctiva without injection. No purulent discharge. ENT: Normal external ear, nose. Moist oropharynx without tonsillar exudates. Non-erythematous pharynx. Uvula midline. No drooling. No trismus. Neck: No cervical midline tenderness. Full range of motion. No meningismus. No cervical lymphadenopathy. No JVD. Resp: Clear to auscultation bilaterally. No wheezing, rhonchi, rales, or crackles. No accessory muscle use. No retractions. Cardio: Regular rate and rhythm. No murmurs, rubs or gallops. Abd: Soft, nontender, non distended. Normal bowel sounds. No palpable masses. No rebound tenderness. No guarding. Negative McBurney's point. Negative psoas sign. Negative obturator sign. Skin: No petechiae or rashes Back: No midline tenderness. No CVA tenderness. Ext: No cyanosis, or edema. Neur: Awake and alert. Normal gait. Normal coordination. Psych: Normal Mood and Affect Results 24 hrs Laboratory Tests Test 12/02/18 15:08 12/02/18 15:16 White Blood Count 11.7 10^3/ul Red Blood Count 4.40 10^6/ul Hemoglobin 12.1 g/dl Hematocrit 36.4 % Mean Corpuscular Volume 82.7 fl Mean Corpuscular Hemoglobin 27.5 pg Mean Corpuscular Hemoglobin Concent 33.2 g/dl Red Cell Distribution Width 15.9 % Platelet Count 289 10^3/UL Mean Platelet Volume 10.1 fl Immature Granulocytes % 0.400 % Neutrophils % 69.4 % Lymphocytes % 20.7 % Monocytes % 6.8 % Eosinophils % 2.2 % Basophils % 0.5 % Nucleated Red Blood Cells % 0.0 /100WBC Immature Granulocytes # 0.050 10^3/ul Neutrophils # 8.1 10^3/ul Lymphocytes # 2.4 10^3/ul Monocytes # 0.8 10^3/ul Eosinophils # 0.3 10^3/ul Basophils # 0.1 10^3/ul Nucleated Red Blood Cells # 0.0 10^3/ul Urine Color RED Urine Clarity SLIGHTLY CLOUDY Urine pH 7.0 Urine Specific [place] 1.002 Urine Ketones NEGATIVE mg/dL Urine Nitrite NEGATIVE mg/dL Urine Bilirubin NEGATIVE mg/dL Urine Urobilinogen NEGATIVE mg/dL Urine Leukocyte Esterase NEGATIVE Faizan/ul Urine Microscopic RBC 0 /HPF Urine Microscopic WBC 2 /HPF Urine Squamous Epithelial Cells FEW /HPF Urine Bacteria FEW /HPF Urine Hemoglobin NEGATIVE mg/dL Urine Glucose NEGATIVE mg/dL Urine Total Protein NEGATIVE mg/dl Sodium Level 139 mmol/L Potassium Level 4.3 mmol/L Chloride Level 106 mmol/L Carbon Dioxide Level 23 mmol/L Anion Gap 10 Blood Urea Nitrogen 4 mg/dl Creatinine 0.50 mg/dl Est Glomerular Filtrat Rate mL/min > 60 mL/min Glucose Level 94 mg/dl Calcium Level 9.2 mg/dl Total Bilirubin 0.1 mg/dl Direct Bilirubin 0.00 mg/dl Indirect Bilirubin 0.1 mg/dl Aspartate Amino Transf (AST/SGOT) 17 IU/L Alanine Aminotransferase (ALT/SGPT) 16 IU/L Alkaline Phosphatase 93 IU/L Total Protein 7.4 g/dl Albumin 3.9 g/dl Globulin 3.50 g/dl Albumin/Globulin Ratio 1.11 POC Beta HCG, Qualitative POSITIVE Current Medications Medications Dose Sig/Florencio Start Time Status Last (Trade) Ordered Route PRN Stop Time Admin Dose Reason Admin Sodium 1,000 ml @ Q1H STAT 12/02/18 DC 12/02/18 Chloride 1,000 mls/hr IV 14:51 12/02/18 15:19 15:50 Procedures/MDM 28-year-old female patient with no significant past medical history presents to ED complaining of feeling dizzy in her . Patient is afebrile and nontoxic-appearing. Patient given 1 L normal saline with improvement of her symptoms. CBC: No leukocytosis. No e/o of systemic infection. No e/o anemia. CMP: No e/o severe acidosis, alkalosis, renal failure, diabetic ketoacidosis, liver disease Lipase within normal limits. Urine: No leukocyte esterase, no nitrites, no hematuria. EKG reviewed and interpreted by Dr. Savage Rate/Rhythm: [73 bpm, Normal Sinus Rhythm] No ectopy, no ST elevations, normal axis. QRS, ST, T-waves: [No changes consistent w/ acute ischemia] Impression: [No evidence of ischemia or arrhythmia] Dizziness unspecified at this time. Low suspicion for acute myocardial infarction, pneumothorax, pneumonia, cardiac tamponade, Lxayr-Elyltgcvr-Hnfki Syndrome, Brugada Syndrome, pulmonary embolism, AAA, aortic dissection, thoracic aortic dissection, endocarditis, myocarditis, pericarditis, cocaine-related ischemia, Boerhaave's syndrome, cardiac dysrhythmias,meningitis, intracranial bleed, seizure, stroke, TIA or other emergent conditions. Low suspicion for symptomatic anemia, ectopic , sepsis, PID, appendicitis, ovarian torsion, tubo-ovarian abscess, surgical abdomen, or other emergent conditions. Patient was educated that there is a risk for threatened . Diagnosis: Dizziness Discharge medications: Tylenol Follow up with primary care physician in 1-2 days. Instructed patient to return to the ED sooner for any worsening symptoms. Patient's questions were answered. Patient is hemodynamically stable. Patient understood and agreed with discharge plan. Patient discharged stable. Disclaimer: Inadvertent spelling and grammatical errors are likely due to EHR/dictation software use and do not reflect on the overall quality of patient care. Also, please note that the electronic time recorded on this note does not necessarily reflect the actual time of the patient encounter. Departure Diagnosis: Primary Impression: Dizziness Condition: Stable Patient Instructions: Possible Causes of Dizziness or Fainting, Dizziness, Unk Cause Referrals: KIAN SAWYER (PCP) [facility] YOU HAVE RECEIVED A MEDICAL SCREENING EXAM AND THE RESULTS INDICATE THAT YOU DO NOT HAVE A CONDITION THAT REQUIRES URGENT TREATMENT IN THE EMERGENCY DEPARTMENT. FURTHER EVALUATION AND TREATMENT OF YOUR CONDITION CAN WAIT UNTIL YOU ARE SEEN IN YOUR DOCTORS OFFICE WITHIN THE NEXT 1-2 DAYS. IT IS YOUR RESPONSIBILITY TO MAKE AN APPOINTMENT FOR FOLOW-UP CARE. IF YOU HAVE A PRIMARY DOCTOR --you should call your primary doctor and schedule an appointment IF YOU DO NOT HAVE A PRIMARY DOCTOR YOU CAN CALL OUR PHYSICIAN REFERRAL HOTLINE AT IF YOU CAN NOT AFFORD TO SEE A PHYSICIAN YOU CAN CHOSE FROM THE FOLLOWING [facility] [address] [facility]. [facility] [address] [facility] [address] [facility] [facility] [address] [facility]. [facility] [address] [facility]. [facility]. [address] [facility]. [facility] YOU HAVE RECEIVED A MEDICAL SCREENING EXAM AND THE RESULTS INDICATE THAT YOU DO NOT HAVE A CONDITION THAT REQUIRES URGENT TREATMENT IN THE EMERGENCY DEPARTMENT. FURTHER EVALUATION AND TREATMENT OF YOUR CONDITION CAN WAIT UNTIL YOU ARE SEEN IN YOUR DOCTORS OFFICE WITHIN THE NEXT 1-2 DAYS. IT IS YOUR RESPONSIBILITY TO MAKE AN APPOINTMENT FOR FOLOW-UP CARE. IF YOU HAVE A PRIMARY DOCTOR --you should call your primary doctor and schedule and appointment IF YOU DO NOT HAVE A PRIMARY DOCTOR YOU CAN CALL OUR PHYSICIAN REFERRAL HOTLINE AT . IF YOU CAN NOT AFFORD TO SEE A PHYSICIAN YOU CAN CHOSE FROM THE FOLLOWING [facility] IN[facility]IONS: [facility] [address] [place] [address] [facility] [address] [place] [address] [facility] [address] [place] [address] [facility] URGENT CARE/SPECIALTIES Additional Instructions: Llame al doctor MAANA y keyon vicky HERMILO PARA DENTRO DE 2-3 ROJAS.Dgale a la secr etaria que nosotros le instruimos hacer esta hermilo.Avise o llame si lauren condicin se empeora antes de la hermilo. Regresa aqui si peor o no mejor. JIMENA TANNER PA-C December 02, 2018 17:52
== END 2018-12-02 16:55 | disposition home or self-care (01) ==
LOC: FTE 13:33
DX: O99.89 Other specified diseases and conditions complicating pregnancy, childbirth and the puerperium (principal); R42 Dizziness and giddiness; Z3A.00 Weeks of gestation of pregnancy not specified
CPT/HCPCS: 36415; 80053; 81001; 81025; 85025; 93005; 96360; J7030; Z7502; 81003

== ENCOUNTER 2019-03-13 15:08 | Inpatient (IN) | payer OTHER ==
[~2019-03-13] VITALS: Ht 157.5 cm; Wt 91.3 kg
[~2019-03-13 15:08] MED LIST changes: -ACET325T33 PO; -AMOX500C2 PO; -IBUP-1542 PO; -MECL-77 PO; -NPH10OT RIGHT EAR; -ONDA4TAB14 PO; -PROM5SYR2 PO
[2019-03-13 15:35] VITALS: BP 139/80; PULSE 77; Ht 157.5 cm; Wt 91.3 kg
[2019-03-13] MEDS ORDERED: ACETAMINOPHEN 500 MG TAB PO STA (18:23)
[2019-03-13] MEDS ORDERED: MAGNESIUM SULFATE 4 GM/100 ML 100 ML IV ONE (18:30)
[2019-03-13] MEDS: LACTATED RINGER'S 1,000 ML IV SCH (19:07)
[2019-03-13] MEDS: MAGNESIUM SULFATE 20 GM/500 ML 500 ML IV SCH (20:10)
[2019-03-13] MEDS: BETAMET NA PHOS/AC(6 MG/ML) 2 ML INJ SYG IM SCH (20:46)
[2019-03-14] MEDS: LACTATED RINGER'S 1,000 ML IV SCH ×2 (02:30→08:31)
[2019-03-14] MEDS: MAGNESIUM SULFATE 20 GM/500 ML 500 ML IV SCH ×2 (06:19→16:27)
[2019-03-14] MEDS: BETAMET NA PHOS/AC(6 MG/ML) 2 ML INJ SYG IM SCH (09:44)
[2019-03-14] MEDS ORDERED: ACETAMINOPHEN 325 MG TAB PO PRN ×2 (11:30→16:00)
[2019-03-14] MEDS ORDERED: CEFAZOLIN 2 GM/50 ML (PMX) 50 ML IVPB SCH (13:00)
[2019-03-14] MEDS ORDERED: MISOPROSTOL 200 MCG TAB PR PRN ×2 (13:00→16:00)
[2019-03-14] MEDS ORDERED: CARBOPROST 250 MCG INJ IM PRN ×2 (13:00→16:00)
[2019-03-14] MEDS ORDERED: METHYLERGONOVINE 0.2 MG INJ IM PRN ×2 (13:00→16:00)
[2019-03-14] MEDS ORDERED: OXYTOCIN 30 UNITS/LR 500 ML IV PRN ×2 (13:00→16:00)
[2019-03-14] MEDS ORDERED: AZITHROMYCIN 500MG/NS (PMX) 250 ML IVPB ONE (13:30)
[2019-03-14] MEDS ORDERED: METOCLOPRAMIDE 10 MG INJ ONE (14:00)
[2019-03-14] MEDS ORDERED: EPHEDrine 25 MG/5 ML SYG ONE (14:00)
[2019-03-14] MEDS ORDERED: morphine SULFATE/PF (10 MG/10 ML) INJ ONE (14:20)
[2019-03-14] MEDS ORDERED: ONDANSETRON 4 MG INJ ONE (14:37)
[2019-03-14] MEDS ORDERED: AZITHROMYCIN 500MG/NS (PMX) 250 ML ONE (14:41)
[2019-03-14] MEDS ORDERED: MIDAZOLAM 1 MG/ML 2 ML INJ ONE (14:48)
[2019-03-14] MEDS ORDERED: LACTATED RINGER'S 1,000 ML IV ONE (15:01)
[2019-03-14] MEDS ORDERED: ZOLPIDEM 5 MG TAB PO PRN (15:30)
[2019-03-14] MEDS ORDERED: ONDANSETRON 4 MG INJ IV ONE (15:30)
[2019-03-14] MEDS ORDERED: MIDAZOLAM 1 MG/ML 2 ML INJ IV PRN (15:30)
[2019-03-14] MEDS ORDERED: HYDROmorphONE 0.5 MG/0.5 ML SYG IV PRN ×2 (15:30)
[2019-03-14] MEDS ORDERED: MEPERIDINE 25 MG INJ IV PRN (15:30)
[2019-03-14] MEDS ORDERED: KETOROLAC 30 MG INJ IV PRN (15:30)
[2019-03-14] MEDS ORDERED: NALOXONE (0.4 MG/ML) INJ IV PRN (15:30)
[2019-03-14] MEDS ORDERED: LABETALOL HCL 20MG INJ IV PRN (15:30)
[2019-03-14] MEDS ORDERED: DIPHENHYDRAMINE 50 MG INJ IV PRN ×2 (15:30)
[2019-03-14] MEDS ORDERED: hydrALAzine 20 MG INJ IV PRN (15:30)
[2019-03-14] MEDS ORDERED: NALBUPHINE HCL (10 MG/1 ML) INJ IV PRN (15:30)
[2019-03-14] MEDS ORDERED: ONDANSETRON 4 MG INJ IV PRN ×2 (15:30→16:00)
[2019-03-14] MEDS ORDERED: EPHEDrine 25 MG/5 ML SYG IV PRN (15:30)
[2019-03-14] MEDS ORDERED: LACTATED RINGER'S 1,000 ML IV SCH (15:49)
[2019-03-14] MEDS ORDERED: OXYTOCIN 30 UNITS/LR 500 ML IV SCH (15:49)
[2019-03-14] MEDS ORDERED: OXYCODONE/ACETAMINOPHEN (5/325) TAB PO PRN ×2 (16:00)
[2019-03-14] MEDS ORDERED: BISACODYL 10 MG SUPP PR PRN (16:00)
[2019-03-14] MEDS ORDERED: LANOLIN HPA 1 PKT TOP PRN (16:00)
[2019-03-14] MEDS ORDERED: CEFAZOLIN 1 GM/50 ML (PMX) 50 ML IVPB SCH ×2 (16:00→17:00)
[2019-03-14] MEDS: OXYTOCIN 30 UNITS/LR 500 ML IV SCH ×2 (16:12→20:00)
[2019-03-14 18:30] VITALS: BP 128/80; PULSE 80; RESP 20
[2019-03-14 19:30] VITALS: BP 135/95; PULSE 106; RESP 19
[2019-03-14 20:30] VITALS: BP 135/78; PULSE 118; RESP 18
[2019-03-14] MEDS: SENNA/DOCUSATE NA (8.6MG/50MG) TAB PO PRN (20:55)
[2019-03-14] MEDS: CEFAZOLIN 1 GM/50 ML (PMX) 50 ML IVPB SCH (21:59)
[2019-03-14 22:00] VITALS: BP 135/70; PULSE 114; RESP 19
[2019-03-14 23:00] VITALS: BP 129/67; PULSE 110; RESP 19
[2019-03-15] VITALS (15 sets, daily range): BP systolic 107–147; BP diastolic 57–74; PULSE 77–114; RESP 16–19
[2019-03-15] MEDS: MAGNESIUM SULFATE 20 GM/500 ML 500 ML IV SCH ×2 (00:23→02:38)
[2019-03-15] MEDS: OXYTOCIN 30 UNITS/LR 500 ML IV SCH ×2 (04:00)
[2019-03-15] MEDS: CEFAZOLIN 1 GM/50 ML (PMX) 50 ML IVPB SCH ×2 (05:45→14:30)
[2019-03-15] MEDS: LACTATED RINGER'S 1,000 ML IV SCH ×2 (09:03→18:59)
[2019-03-15] MEDS: MAGNESIUM HYDROXIDE 30ML CUP PO PRN (21:56)
[2019-03-15] MEDS: SENNA/DOCUSATE NA (8.6MG/50MG) TAB PO PRN (21:56)
[2019-03-15] MEDS: IBUPROFEN 600 MG TAB PO PRN (23:36)
[2019-03-16 03:26] VITALS: BP 130/70; PULSE 65; RESP 17
[2019-03-16] MEDS: IBUPROFEN 600 MG TAB PO PRN ×3 (05:37→17:19)
[2019-03-16 09:04] VITALS: BP 137/80; PULSE 68; RESP 17
[2019-03-16] MEDS: SENNA/DOCUSATE NA (8.6MG/50MG) TAB PO PRN (09:34)
[2019-03-16] MEDS: MAGNESIUM HYDROXIDE 30ML CUP PO PRN ×2 (09:34→09:37)
[2019-03-16 12:10] VITALS: BP 136/79; PULSE 76; RESP 17
[2019-03-16 16:12] VITALS: BP 139/73; PULSE 72; RESP 14
[2019-03-16 20:15] VITALS: BP 132/66; PULSE 68; RESP 18
[2019-03-17] VITALS: BP 130/73; PULSE 67; RESP 18
[2019-03-17 04:30] VITALS: BP 136/77; PULSE 64; RESP 18
[2019-03-17 08:15] VITALS: BP 139/88; PULSE 62; RESP 18
[2019-03-17 12:26] VITALS: BP 121/59; PULSE 70; RESP 20
[2019-03-17] MEDS: IBUPROFEN 600 MG TAB PO PRN (12:26)
== END 2019-03-17 17:08 | disposition home or self-care (01) | DRG 786 ==
LOC: OBT 15:08 → L-D 15:10 → OBT 17:45 → L-D 17:45 → PP1 03-14 18:47
PROVIDERS: ADMIT Obstetrics & Gynecology Gynecology; ATTEND Obstetrics & Gynecology
PROC: 10D00Z1 Extraction of Products of Conception, Low, Open Approach (ICD-10-PCS; principal; 2019-03-14 14:45)
DX: O32.8XX0 Maternal care for other malpresentation of fetus, not applicable or unspecified (principal); O14.13 Severe pre-eclampsia, third trimester; Z3A.36 36 weeks gestation of pregnancy; Z37.0 Single live birth; O69.81X0 Labor and delivery complicated by cord around neck, without compression, not applicable or unspecified; O34.03 Maternal care for unspecified congenital malformation of uterus, third trimester; Q51.3 Bicornate uterus
CPT/HCPCS: 76815; 76818; 80053; 81001; 83735; 84560; 85025; 85384; 85610; 85730; 86592; 86850; 86900; 86901; 88307; 99464; G0463; J0456; J0690; J0702; J2250; J2274; J2405; J2590; J2765; J3475; J7120

== ENCOUNTER 2019-05-27 05:32 | Emergency (ER) | payer OTHER ==
[~2019-05-27] VITALS: Ht 157.5 cm; Wt 82.8 kg
[~2019-05-27 05:32] MED LIST changes: -ACET500C5 PO; +DOCU-144 PO; +MECL12.574 PO; +ONDA4TAB14 PO; +ONDA4TAB8 PO
[2019-05-27 05:35] VITALS: BP 133/82; Ht 157.5 cm; Wt 82.8 kg
[2019-05-27 07:54] VITALS: PULSE 103; RESP 18
== END 2019-05-27 07:56 | disposition home or self-care (01) ==
LOC: FTE 05:32
DX: R11.10 Vomiting, unspecified (principal); R06.02 Shortness of breath
CPT/HCPCS: 70490; 81025; 93005; Z7502